=== PATIENT | male | born 1980 | race Caucasian/White ===

== ENCOUNTER 2017-06-09 19:45 | Emergency (ER) | payer OTHER ==
[~2017-06-09] VITALS: Ht 198.1 cm; Wt 150.0 kg
[2017-06-09 19:50] VITALS: TEMP 36.6; Ht 198.1 cm; Wt 150.0 kg
[2017-06-09] MEDS ORDERED: LIDOCAINE/EPINEPHRINE 1% 20 ML VIAL INFIL STA (20:01)
[2017-06-09] MEDS ORDERED: BUPR8SUB19 SL (20:07)
[2017-06-09] MEDS ORDERED: PHEN37.585 PO (20:07)
[2017-06-09] MEDS ORDERED: DIPHTHERIA/TETANUS/PERTUSSIS 0.5 ML SYR/VIAL IM. ONE (20:30)
[2017-06-09] MEDS ORDERED: XYLOCAINE 1%/SOD BICARB 20 ML VIAL INFIL ONE (20:37)
[2017-06-09] MEDS ORDERED: OXYCODONE/ACETAMINOPHEN 5-325 TAB PO STA ×2 (20:45→22:12)
--- NOTE | 2017-06-09 21:20 | DIAGNOSTIC IMAGING REPORT ---
HEAD WITHOUT CONTRAST (CT) CT DOSE: 1459.56 mGycm HISTORY: Pain Trauma to nose, deviated, Laceration. Headache. TECHNIQUE: Multiaxial CT images of the head were performed without the use of intravenous contrast. A dose lowering technique was utilized adhering to the principles of ALARA. Comparison: None. Findings: The paranasal sinuses and mastoid air cells are clear. The calvarium and skull base are intact. The ventricles and sulci are within normal limits. There is no mass, hematoma, midline shift, or acute infarct. Impression: No acute intracranial abnormality. The above report was generated using voice recognition software. It may contain grammatical, syntax or spelling errors. Electronically signed by: Feliz Sarmiento M.D. 06/09/2017 9:18 PM Dictated Date/Time: 06/09/2017 9:18 PM
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
[2017-06-09] MEDS ORDERED: AMOXICIL/CLAVU 875MG HOME PACK PO STA (22:12)
[2017-06-09] MEDS ORDERED: AMOX875T PO (22:15)
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
[2017-06-09 22:30] VITALS: BP 154/76; PULSE 87; O2SAT 95
== END 2017-06-09 22:31 | disposition home or self-care (01) ==
LOC: C.EDB 19:48 → C.EDD 22:31
DX: S01.21XA Laceration without foreign body of nose, initial encounter (principal); S02.2XXA Fracture of nasal bones, initial encounter for closed fracture; Y04.0XXA Assault by unarmed brawl or fight, initial encounter; Y92.149 Unspecified place in prison as the place of occurrence of the external cause; Y99.8 Other external cause status; Z87.891 Personal history of nicotine dependence; Z83.3 Family history of diabetes mellitus; Z82.49 Family history of ischemic heart disease and other diseases of the circulatory system; Z80.9 Family history of malignant neoplasm, unspecified; Z84.1 Family history of disorders of kidney and ureter; Z23 Encounter for immunization